=== PATIENT | male | born 1950 | race Caucasian/White ===

== ENCOUNTER 2018-06-07 19:01 | Emergency (ER) | payer BC ==
[~2018-06-07] VITALS: Ht 162.6 cm; Wt 63.5 kg
--- NOTE | 2018-06-07 19:28 | NUR ---
PATIENT WAS MSE BY DR ARDON IN ROOM 05A.
[2018-06-07] MEDS ORDERED: HYDROCODONE/APAP 5-325MG TABLET PO ONE (19:30)
[2018-06-07] MEDS ORDERED: HYDROCODONE/APAP 5-325MG TABLET ONE (19:40)
--- NOTE | 2018-06-07 19:40 | NUR ---
Patient discharged to home in stable conditon. Written and verbal after care instructions given by DR Amador. Patient verbalizes understanding of instructions.
[2018-06-07 19:41] VITALS: BP 135/72
== END 2018-06-07 19:42 | disposition home or self-care (01) ==
LOC: ER 19:02
DX: M79.662 Pain in left lower leg (principal); E78.5 Hyperlipidemia, unspecified; I10 Essential (primary) hypertension; K21.9 Gastro-esophageal reflux disease without esophagitis; Z88.6 Allergy status to analgesic agent
CPT/HCPCS: A4663